=== PATIENT | female | born 1995 | race Caucasian/White ===

== ENCOUNTER 2023-09-05 10:41 | Outpatient (CLI) | payer MEDICAID | END 2023-09-05 23:59 | disposition home or self-care (01) | LOC: RAD 10:41 | PROVIDERS: ATTEND General Practice | DX: F11.20 Opioid dependence, uncomplicated (principal) | CPT/HCPCS: 93005 ==

== ENCOUNTER → 2023-09-27 | Outpatient (CLI) | payer MEDICAID | END | disposition home or self-care (01) | LOC: RAD 15:46 | PROVIDERS: ATTEND Physician Assistant | DX: I49.8 Other specified cardiac arrhythmias (principal); F11.20 Opioid dependence, uncomplicated | CPT/HCPCS: 93005 ==

== ENCOUNTER 2023-10-14 12:49 | Outpatient (CLI) | payer MEDICAID | END 2023-10-14 23:59 | disposition home or self-care (01) | LOC: RAD 12:49 | PROVIDERS: ATTEND Physician Assistant | DX: F11.20 Opioid dependence, uncomplicated (principal) | CPT/HCPCS: 93005 ==

== ENCOUNTER 2023-11-28 13:27 | Outpatient (CLI) | payer MEDICAID | END 2023-11-28 23:59 | disposition home or self-care (01) | LOC: RAD 13:27 | PROVIDERS: ATTEND Physician Assistant | DX: F11.20 Opioid dependence, uncomplicated (principal) | CPT/HCPCS: 93005 ==

== ENCOUNTER 2024-06-29 13:18 | Outpatient (CLI) | payer MEDICAID | END 2024-06-29 23:59 | disposition home or self-care (01) | LOC: RAD 13:18 | PROVIDERS: ATTEND Physician Assistant | DX: R00.1 Bradycardia, unspecified (principal); F11.20 Opioid dependence, uncomplicated | CPT/HCPCS: 93005 ==

== ENCOUNTER 2025-01-25 12:10 | Outpatient (CLI) | payer MEDICAID ==
--- NOTE | 2025-01-25 16:02 | ELECTROCARDIOGRAPH REPORT ---
[facility] Test Date: 2025-01-25 Test Time: 12:47:53 Pat Name: MIKO GRADY Department: PRE/OP CARDIOLOGY [id number] Room: Gender: F Grants Specialist: EM : [id number] Requested By: FELIPE POLLOCK Order Number: [id number] Reading MD: Dr. Kwesi Garcia Measurements Intervals [place] Rate: 62 P: 50 [place]: 166 QRS: 22 QRSD: 102 T: 69 QT: 440 QTc: 447 Interpretive Statements Sinus rhythm RSR' in V1 or V2, right VCD or RVH Electronically Signed On 01-26-2025 7:00:[address] Kwesi Garcia Please click the below link to view image of tracing.
== END 2025-01-25 23:59 | disposition home or self-care (01) ==
LOC: RAD 12:10
PROVIDERS: ATTEND Physician Assistant
DX: F11.20 Opioid dependence, uncomplicated (principal)
CPT/HCPCS: 93005